=== PATIENT | female | born 1995 | race Hispanic/Latino ===

== ENCOUNTER 2017-09-26 21:15 | Inpatient (IN) | payer MEDICAID, OTHER, SELFPAY ==
[~2017-09-26 21:15] MED LIST: Bupivacaine/Epinephrine 0.25% 30 ML VIAL ONE
[2017-09-26 21:41] VITALS: BMI 30.8
[2017-09-26] MEDS ORDERED: Lactated Ringer's 1,000 ML IV SCH (22:15)
[2017-09-26] MEDS ORDERED: DISCONTINUE ALL PREVIOUS NARCOTICS FS SCH (22:45)
[2017-09-26] MEDS ORDERED: HYDROcodone/Acetaminophen 5/325 mg Tablet PO PRN ×2 (22:56)
[2017-09-26] MEDS ORDERED: Lidocaine 1% (PF) 30 ML VIAL SC PRN (22:56)
[2017-09-26] MEDS ORDERED: LR / Pitocin 40 units/1000 ml 1,000 ML IV PRN (22:56)
[2017-09-26] MEDS ORDERED: Ibuprofen 800 MG TAB PO PRN (22:56)
[2017-09-26] MEDS ORDERED: Ondansetron HCl/PF 4 MG/2 ML Vial IVP PRN ×2 (22:56→23:47)
[2017-09-26] MEDS ORDERED: Penicillin G Potassium 5 MILL.UNITS in Sodium Chloride 0.9% 100 ML IVPB SCH (23:00)
[2017-09-26 23:05] LABS: Hemoglobin 12.6 g/dL (12.0-16.0); Mean Corpuscular HGB CONC 35.1 g/dL (32.0-36.0); Mean Corpuscular Hemoglobin 31.3 pg (27.0-31.0); Platelet Count 185 thou/uL (130-400); RBC Distribution Width 12.4 % (11.5-14.5); Red Blood Cell (RBC) Count 4.04 mill/uL (4.20-5.40); White Blood Cell (WBC) Count 11.7 thou/uL (4.8-10.8)
[2017-09-26] MEDS: Bupivacaine 0.5% 20 ML, Fentanyl 400 MCG in Sodium Chloride 0.9% 72 ML EPIDURAL SCH (23:40)
[2017-09-26] MEDS ORDERED: Fentanyl 4mcg/Marcaine 0.1% Cassette 100 ML EPIDURAL SCH (23:45)
[2017-09-26] MEDS ORDERED: Communication Order-Pharmacy FS SCH (23:45)
[2017-09-26 23:47] LABS: HBSAg Index 0.18 S/CO (0-0.99); Hep B Surf Ag Non-Reactive S/CO (NonReactive); Syphilis Antibody Nonreactive (Nonreactive); Syphilis Antibody Index 0.05 S/CO (<1.00 Non-Reactive)
[2017-09-26] MEDS ORDERED: diphenhydrAMINE 50 MG/ML VIAL IVP PRN (23:47)
[2017-09-26] MEDS ORDERED: Promethazine HCl 25 MG/ML VIAL IM PRN (23:47)
[2017-09-26] MEDS ORDERED: Lactated Ringer's 500 ML IV PRN (23:47)
[2017-09-26] MEDS ORDERED: ePHEDrine/0.9% NaCl/PF SYRINGE 50 mg/10 ml SLOW IVP PRN (23:47)
[2017-09-26] MEDS ORDERED: Acetaminophen 325 MG TAB PO PRN (23:47)
[2017-09-26] MEDS ORDERED: Eucerin (Mineral Oil/Petrolatum,White) 30 gm Jar TOP PRN (23:47)
[2017-09-26] MEDS ORDERED: Naloxone HCl 0.4 mg/ml Vial IVP PRN ×2 (23:47)
[2017-09-27] MEDS: Lactated Ringer's 1,000 ML IV SCH ×2 (01:38→09:15)
[2017-09-27] MEDS: Penicillin G 2.5 MILL.units 2.5 MILL.UNITS in Premix Bag 1 BAG IVPB SCH ×2 (03:59→04:00)
[2017-09-27] MEDS: Bupivacaine 0.5% 20 ML, Fentanyl 400 MCG in Sodium Chloride 0.9% 72 ML EPIDURAL SCH (05:43)
--- NOTE | 2017-09-27 08:48 | PDOC.OPDEL ---
OB Operative/Delivery Note Delivery Dr/Surgeon: Simeon for BVOH Pre-Delivery Diagnosis: active labor Procedure/Post Delivery Dx: spontaneous vaginal delivery Weeks gestation: 37 Anesthesia: epidural - Findings A Sex: male Weight: 0 oz (pending, est 7.5#) - 1 min: 9 - 5 min: 9 - Additional Findings/Plan Placenta delivered: spontaneous Repaired Obstetrical Laceration: none Estimated blood loss: 300 Post delivery plan: routine recovery
[2017-09-27] MEDS ORDERED: LR / Pitocin 40 units/1000 ml 1,000 ML IV SCH (09:21)
[2017-09-27] MEDS ORDERED: Ondansetron HCl/PF 4 MG/2 ML Vial IVP PRN (09:21)
[2017-09-27] MEDS ORDERED: Milk Of Magnesia 30 ML UDCUP PO PRN (09:21)
[2017-09-27] MEDS ORDERED: Bisacodyl 10 MG SUPP PR PRN (09:21)
[2017-09-27] MEDS ORDERED: Adacel (T-DAP) 0.5 ML VIAL IM ONE (09:21)
[2017-09-27] MEDS ORDERED: Preparation H Ointment 28 GM TUBE PR PRN (09:21)
[2017-09-27] MEDS ORDERED: Promethazine HCl 25 MG/ML VIAL IM PRN (09:21)
[2017-09-27] MEDS ORDERED: Benzocaine/Menthol 20-0.5% 60 ML CAN TOP PRN (09:21)
[2017-09-27] MEDS ORDERED: diphenhydrAMINE 25 MG CAP PO PRN (09:21)
[2017-09-27] MEDS ORDERED: Prenatal Vitamin 1 TAB PO SCH (09:45)
[2017-09-27] MEDS ORDERED: Docusate Calcium (SURFAK) 240 MG CAP PO SCH (09:45)
[2017-09-27] MEDS: Ibuprofen 800 MG TAB PO SCH ×2 (13:54→21:48)
[2017-09-27] MEDS: HYDROcodone/Acetaminophen 5/325 mg Tablet PO PRN (21:48)
[2017-09-27] MEDS: Docusate Calcium (SURFAK) 240 MG CAP PO SCH (21:48)
[2017-09-28] MEDS: Ferrous Sulfate 325 MG TAB PO SCH ×3 (00:09→15:56)
[2017-09-28] MEDS: Penicillin G 2.5 MILL.units 2.5 MILL.UNITS in Premix Bag 1 BAG IVPB SCH (00:37)
[2017-09-28] MEDS: Ibuprofen 800 MG TAB PO SCH ×3 (05:40→20:57)
[2017-09-28] MEDS: Prenatal Vitamin 1 TAB PO SCH (08:10)
[2017-09-28] MEDS: Docusate Calcium (SURFAK) 240 MG CAP PO SCH ×2 (08:10→20:58)
[2017-09-28] MEDS: HYDROcodone/Acetaminophen 5/325 mg Tablet PO PRN ×3 (08:10→23:06)
[2017-09-28 18:39] LABS: Bilirubin Negative (Negative); Blood, Urine Moderate (Negative); Clarity CLEAR (Clear); Glucose, Urine (Dipstick) Negative (Negative); Leukocyte Negative (Negative); Nitrite Negative (Negative); Protein, Urine (Dipstick) Negative (Neg-Trace); Specific Gravity, Urine 1.023 (1.002-1.036)
[2017-09-28 18:42] LABS: Bacteria/HPF None Seen HPF (None Seen); Hyaline Casts/LPF 0-3 HYALINE CAST LPF (0-3 Hyaline); RBC/HPF 21-50 HPF (0-3); Squamous Epithelial 0-3 HPF (0-3)
[2017-09-29] MEDS: Ibuprofen 800 MG TAB PO SCH (06:26)
[2017-09-29] MEDS: Ferrous Sulfate 325 MG TAB PO SCH (07:35)
[2017-09-29 08:42] VITALS: BP 112/67; TEMP 98.7
[2017-09-29] MEDS: Prenatal Vitamin 1 TAB PO SCH (08:52)
[2017-09-29] MEDS: Docusate Calcium (SURFAK) 240 MG CAP PO SCH (08:52)
[2017-09-29] MEDS: HYDROcodone/Acetaminophen 5/325 mg Tablet PO PRN (10:37)
== END 2017-09-29 14:30 | disposition home or self-care (01) | DRG 775 ==
LOC: L&D/OP 21:15 → L&D 21:52 → 3SW 09-27 10:53
PROVIDERS: ADMIT Obstetrics & Gynecology; ATTEND Obstetrics & Gynecology
PROC: 10E0XZZ Delivery of Products of Conception, External Approach (ICD-10-PCS; principal; 2017-09-27)
DX: O99.824 Streptococcus B carrier state complicating childbirth (principal); O69.81X0 Labor and delivery complicated by cord around neck, without compression, not applicable or unspecified; Z37.0 Single live birth; Z3A.37 37 weeks gestation of pregnancy
CPT/HCPCS: 51702; 81001; 85027; 86780; 87086; 87340; 99285; J0595; J2001; J2405; J2540; J3010; J3490; J7050

== ENCOUNTER 2019-09-11 21:47 | Emergency (ER) | payer MEDICAID, SELFPAY ==
[2019-09-11] MEDS ORDERED: Proparacaine 0.5% Opth 15 ML BOT ONE (22:37)
[2019-09-11] MEDS ORDERED: Fluorescein Opthalmic Strip ONE (22:37)
== END 2019-09-11 23:13 | disposition home or self-care (01) ==
LOC: ERS 21:47
DX: S05.02XA Injury of conjunctiva and corneal abrasion without foreign body, left eye, initial encounter (principal); S05.01XA Injury of conjunctiva and corneal abrasion without foreign body, right eye, initial encounter; X58.XXXA Exposure to other specified factors, initial encounter
CPT/HCPCS: 99283

== ENCOUNTER 2019-09-12 11:01 | Emergency (ER) | payer SELFPAY ==
[2019-09-12] MEDS ORDERED: Moxifloxacin 0.5% Opth Drop 3 ML BOT EA EYE SCH (11:45)
== END 2019-09-12 12:14 | disposition home or self-care (01) ==
LOC: ERS 11:01
DX: H10.9 Unspecified conjunctivitis (principal)
CPT/HCPCS: 99282

== ENCOUNTER 2022-09-29 01:10 | Emergency (ER) | payer SELFPAY ==
[2022-09-29] MEDS ORDERED: Orphenadrine Citrate 60 MG/2 ML VIAL IM SCH (01:45)
[2022-09-29] MEDS ORDERED: Ketorolac Tromethamine 30 MG/ML VIAL ONE (04:27)
== END 2022-09-29 04:33 | disposition home or self-care (01) ==
LOC: ERS 01:10
DX: M54.50 Low back pain, unspecified (principal); X50.0XXA Overexertion from strenuous movement or load, initial encounter
CPT/HCPCS: 72100; 96372; 99283; J1885; J2360